=== PATIENT | female | born 1985 | race Caucasian/White ===

== ENCOUNTER 2016-11-25 12:39 | Outpatient (CLI) | payer MEDICAID ==
[~2016-11-25] VITALS: Ht 160 cm; Wt 65.0 kg
[~2016-11-25 12:39] MED LIST: DESYREL DIVIDO150 M1 PO; DEXILANT60 MG PO; DOSTINEX0.5 MG/TAB PO; FLEXERIL 1010 MG/TAB PO; GAVISCON 95 MG360 ML PO; IMITREX 6M6 MG/0.5 M SQ; INDERAL 20MG20 MG PO; LAMICTAL 100MG100 MG PO; LEVOXYL0.075 MG PO; METHADONE H10 MG/TAB PO; MIRALAX PA17 GM/Dose PO; NEURONTIN300 MG/CAP PO; PHENERGAN 25 TA25 MG PO; REGLAN 10MG10 MG/TAB PO; RITALIN LA10 MG PO; SEE INSTRUCTIONS IT; TOPAMAX50 MG PO; ULTRACET TABL1 UDTAB PO; ULTRAM 50MG TAB50 MG PO; XOPENEX 1.1.25 MG/3 IH; ZANTAC 150MG T150 MG PO; ZOLOFT 50MG50 MG PO; [UNRECOGNIZED DRUG - OTHER] PO
[2016-11-25] MEDS ORDERED: DOSTINEX0.5 MG/TAB PO (13:12)
[2016-11-25] MEDS ORDERED: DILAUDID 4MG TAB4 MG PO (13:13)
[2016-11-25] MEDS ORDERED: EFFEXOR XR75 MG/CAP PO (13:14)
[2016-11-25] MEDS ORDERED: NEURONTIN300 MG/CAP PO (13:17)
[2016-11-25] MEDS ORDERED: IMITREX100 MG PO (13:18)
[2016-11-25] MEDS ORDERED: RITALIN10 MG PO (13:21)
[2016-11-25] MEDS ORDERED: PHENERGAN 25 TA25 MG PO (13:22)
[2016-11-25 13:25] VITALS: BP 116/89; PULSE 80
[2016-11-25 15:49] VITALS: BP 116/74; PULSE 91
== END 2016-11-25 15:49 | disposition home or self-care (01) ==
LOC: COL.CAR 12:39
DX: R55 Syncope and collapse (principal); R00.0 Tachycardia, unspecified; E03.9 Hypothyroidism, unspecified; Z83.3 Family history of diabetes mellitus; Z86.69 Personal history of other diseases of the nervous system and sense organs; Z86.73 Personal history of transient ischemic attack (TIA), and cerebral infarction without residual deficits; Z86.39 Personal history of other endocrine, nutritional and metabolic disease; Z87.19 Personal history of other diseases of the digestive system

== ENCOUNTER 2016-12-17 14:14 | Outpatient (CLI) | payer MEDICAID ==
[~2016-12-17] VITALS: Ht 160 cm; Wt 65.9 kg
[~2016-12-17 14:14] MED LIST changes: +DILAUDID 4MG TAB4 MG PO; +EFFEXOR XR75 MG/CAP PO; +IMITREX100 MG PO; +RITALIN10 MG PO
[2016-12-17 15:48] VITALS: BP 123/76; PULSE 83; TEMP 98
== END 2016-12-17 15:50 | disposition home or self-care (01) ==
LOC: EUO 14:14
DX: Z95.828 Presence of other vascular implants and grafts (principal); J98.6 Disorders of diaphragm
CPT/HCPCS: C1751

== ENCOUNTER → 2017-01-13 | Outpatient (REF) | LOC: ZAIV 01-12 06:30 | DX: Z02.89 Encounter for other administrative examinations (principal) ==

== ENCOUNTER → 2017-03-12 | Outpatient (CLI) | payer MEDICAID ==
[~2017-03-12] MED LIST changes: -DILAUDID 4MG TAB4 MG PO; +DILAUDID8 M1 PO
== END ==
LOC: ZCOL.LAB 15:12
DX: L03.312 Cellulitis of back [any part except buttock and flank] (principal)

== ENCOUNTER 2017-03-16 08:57 | Outpatient (RCR) | payer MEDICAID ==
[~2017-03-16] VITALS: Ht 160 cm; Wt 61.3 kg
[2017-03-16 11:38] VITALS: BP 110/88; PULSE 52; TEMP 98.1
[2017-04-14] MEDS ORDERED: BENADRYL25 M2 PO (12:04)
[2017-04-14] MEDS ORDERED: kenalog (12:05)
[2017-04-14] MEDS ORDERED: PROTONIX20 MG PO (12:06)
[2017-04-14] MEDS ORDERED: CORTIZONE-10 PLUS1% TP (12:07)
== END 2017-03-16 13:00 | disposition home or self-care (01) ==
LOC: EUO 08:57
DX: T85.79XA Infection and inflammatory reaction due to other internal prosthetic devices, implants and grafts, initial encounter (principal)
CPT/HCPCS: C1751

== ENCOUNTER 2017-03-22 16:28 | Inpatient (IN) | payer MEDICAID ==
[~2017-03-22] VITALS: Ht 160 cm; Wt 62.0 kg
[2017-03-22 18:46] VITALS: BP 143/81; PULSE 77; TEMP 98.1
[2017-03-22 19:25] LABS: BASO % 0.3 % (0.0-2.0); EOS % 0.1 % (0-4.0); GRAN # 11.7 (1.4-6.5); GRAN % 88.7 % (42.2-75.2); HEMOGLOBIN 11.8 g/dl (12.5-16.0); LYMPH # 0.8 (1.2-3.4); LYMPH % 6.1 % (20.0-51.0); MEAN CELL VOLUME 89 fl (80.0-100.0); MEAN CORPUSCULAR HEMOGLOBIN 28 pg (27.0-31.0); MEAN CORPUSCULAR HGB CONC 32 g/dl (33.0-37.0); MEAN PLATELET VOLUME 8.8 fl (7.4-10.4); MONO # 0.6 (0.1-0.6); MONO % 4.3 % (1.7-9.3); PLATELET COUNT 369 K/mm3 (130-400); RED BLOOD COUNT 4.16 M/mm3 (4.10-5.30); REDCELL DISTRIBUTION WIDTH-CV 13.4 % (11.5-14.5); WHITE BLOOD COUNT 13.2 K/mm3 (4.8-10.8)
[2017-03-22 19:39] LABS: ADJUSTED CALCIUM 8.9 mg/dL (8.4-10.2); ALBUMIN 3.6 gm/dL (3.5-5.0); BILIRUBIN,TOTAL 0.7 mg/dL (0.0-1.0); CALCIUM 8.6 mg/dL (8.4-10.2); CREATININE, serum 2.2 mg/dL (0.52-1.25); POTASSIUM 3.8 mmol/L (3.4-5.0); TOTAL PROTEIN 6.7 gm/dL (6.4-8.2)
[2017-03-22 20:45] VITALS: BP 135/79; PULSE 68; TEMP 99.2
[2017-03-23 00:03] VITALS: BP 133/79; PULSE 81; TEMP 98.7
[2017-03-23 01:40] LABS: PH 5 (5-8); SQUAMOUS EPITHELIAL 0-2 /hpf; URINE APPEARANCE Clear; URINE BACTERIA None Seen /hpf; URINE BILIRUBIN Negative (NEGATIVE); URINE BLOOD Negative (NEGATIVE); URINE COLOR Yellow; URINE GLUCOSE Negative (NEGATIVE); URINE KETONE 1+ (NEGATIVE); URINE RBC 0-2 /hpf; URINE UROBILINOGEN Negative (NEGATIVE); URINE WBC 0-2 /hpf
[2017-03-23 04:16] VITALS: BP 119/81; PULSE 71; TEMP 98.4
[2017-03-23 07:44] VITALS: BP 126/72; PULSE 74; TEMP 98.5
[2017-03-23 10:30] LABS: CALCIUM 8.4 mg/dL (8.4-10.2); CREATININE, serum 2.14 mg/dL (0.52-1.25); POTASSIUM 3.6 mmol/L (3.4-5.0)
[2017-03-23 11:53] VITALS: BP 124/75; PULSE 72; TEMP 97.8
[2017-03-23 16:10] VITALS: BP 137/85; PULSE 70; TEMP 99
[2017-03-23 19:41] VITALS: BP 155/93; PULSE 67; TEMP 99.2
[2017-03-24 00:30] VITALS: BP 142/77; PULSE 60; TEMP 98.9
[2017-03-24 02:46] VITALS: BP 131/74; PULSE 64; TEMP 98.1
[2017-03-24 07:56] VITALS: BP 140/85; PULSE 77; TEMP 98.3
[2017-03-24 11:55] VITALS: BP 134/81; PULSE 64; TEMP 98.4
[2017-03-24 14:31] LABS: BASO # 0.1 (0.0-0.2); BASO % 0.5 % (0.0-2.0); EOS # 0.2 (0.0-0.7); EOS % 1.9 % (0-4.0); GRAN # 8.5 (1.4-6.5); GRAN % 79.3 % (42.2-75.2); LYMPH # 1.3 (1.2-3.4); LYMPH % 12.1 % (20.0-51.0); MEAN CELL VOLUME 87 fl (80.0-100.0); MEAN CORPUSCULAR HGB CONC 32 g/dl (33.0-37.0); MEAN PLATELET VOLUME 9.2 fl (7.4-10.4); MONO # 0.6 (0.1-0.6); MONO % 5.8 % (1.7-9.3); PLATELET COUNT 324 K/mm3 (130-400); RED BLOOD COUNT 3.96 M/mm3 (4.10-5.30); REDCELL DISTRIBUTION WIDTH-CV 13.2 % (11.5-14.5); WHITE BLOOD COUNT 10.8 K/mm3 (4.8-10.8)
[2017-03-24 14:39] LABS: CALCIUM 8.4 mg/dL (8.4-10.2); CREATININE, serum 2.08 mg/dL (0.52-1.25); POTASSIUM 3.6 mmol/L (3.4-5.0)
[2017-03-24 14:41] LABS: HEMATOCRIT 34.6 % (37.0-47.0); HEMOGLOBIN 11.2 g/dl (12.5-16.0); MEAN CORPUSCULAR HEMOGLOBIN 28 pg (27.0-31.0)
[2017-03-24 15:38] VITALS: BP 140/83; PULSE 61; TEMP 98.2
[2017-03-24 20:00] VITALS: BP 135/88; PULSE 54; TEMP 98.5
[2017-03-25 00:44] VITALS: BP 135/83; PULSE 54; TEMP 98.8
[2017-03-25 04:55] VITALS: BP 129/79; PULSE 55; TEMP 98.6
[2017-03-25 08:13] VITALS: BP 145/96; PULSE 66
[2017-03-25 09:30] VITALS: BP 122/64; PULSE 61; TEMP 98.2
[2017-03-25 09:54] LABS: CALCIUM 8.2 mg/dL (8.4-10.2); CREATININE, serum 2.05 mg/dL (0.52-1.25); POTASSIUM 3.5 mmol/L (3.4-5.0)
[2017-03-25] MEDS ORDERED: DOXYCYCLINE 10100 MG PO (10:35)
[2017-03-25 12:37] VITALS: BP 149/89; PULSE 64; TEMP 98.3
== END 2017-03-25 15:15 | disposition home or self-care (01) | DRG 683 ==
LOC: MEDICAL 16:28
PROVIDERS: Nurse Practitioner; Physician Assistant
DX: N17.9 Acute kidney failure, unspecified (principal); F11.20 Opioid dependence, uncomplicated; E86.0 Dehydration; J45.909 Unspecified asthma, uncomplicated; K90.0 Celiac disease; G89.29 Other chronic pain; M54.9 Dorsalgia, unspecified
CPT/HCPCS: 99223-AI; 99231-AI; 99239; C9113; J1170; J1644; J2550; J7030; J7050

== ENCOUNTER 2017-05-06 14:10 | Outpatient (CLI) | payer MEDICAID ==
[~2017-05-06 14:10] MED LIST changes: +BENADRYL25 M2 PO; +CORTIZONE-10 PLUS1% TP; +DOXYCYCLINE 10100 MG PO; +PROTONIX20 MG PO; +kenalog
[2017-05-06 14:54] VITALS: BP 121/77; PULSE 120; TEMP 98.5
== END 2017-05-06 14:56 | disposition home or self-care (01) ==
LOC: EUO 14:10
DX: Z45.2 Encounter for adjustment and management of vascular access device (principal)